=== PATIENT | male | born 1975 | race African-American/Black ===

== ENCOUNTER 2021-03-14 07:05 | Emergency (ER) | payer SELFPAY ==
[~2021-03-14] VITALS: Ht 182.9 cm; Wt 104.0 kg
[2021-03-14] MEDS ORDERED: SODIUM CHLORIDE 0.9% 1,000 ML IV ONE (08:15)
[2021-03-14 08:31] LABS: CHLORIDE 101 mEq/L (98-107)
[2021-03-14 08:34] LABS: INR 1.1; PROTHROMBIN TIME 11.4 sec (9.6-11.0)
[2021-03-14 08:37] LABS: BASOPHILS % 0.8 % (0.0-2.0); HEMATOCRIT. 45.6 % (42.0-52.0); HEMOGLOBIN. 15.6 g/dL (14.0-18.0); LYMPHOCYTES % 22.2 % (20.0-50.0); MEAN CORPUSCULAR HEMOGLOBIN 32.9 pg (28.0-32.0); MEAN CORPUSCULAR VOLUME 96.2 fL (80.0-94.0); MEAN PLATELET VOLUME 9.1 fl (7.4-10.4); MONOCYTES % 5.9 % (2.0-8.0); NEUTROPHILS % 71.1 % (40.0-76.0); PLATELET 192 x1000/uL (130-400); RED BLOOD CELL COUNT 4.74 mill/uL (4.7-6.1); RED CELL DISTRIBUTION WIDTH 12.9 % (11.6-14.6)
[2021-03-14] MEDS ORDERED: TERBUTALINE SULFATE 1MG/ML VIAL SUBCUT ONE (09:30)
[2021-03-14] MEDS ORDERED: TOPUD PO (11:16)
[2021-03-14 11:29] VITALS: BP 121/72
== END 2021-03-14 11:32 | disposition home or self-care (01) ==
LOC: ER 07:05
DX: N48.30 Priapism, unspecified (principal)
CPT/HCPCS: 36415; 80053; 85025; 85610; 96360; 96372; 99283; J3105; J7030; Z7610